=== PATIENT | female | born 1930 | race Hispanic/Latino ===

== ENCOUNTER 2016-08-22 17:03 | Emergency (ER) | payer MEDICARE, MEDICAID ==
--- NOTE | 2016-08-22 18:32 | XRay Report ---
FINAL REPORT PROCEDURE: XR HIP 2-3V RT TECHNIQUE: RIGHT hip radiographs, 2 views each, including AP view of the pelvis. HISTORY: fall off bed. Right hip pain COMPARISON: No prior studies are available for comparison. FINDINGS: There has been right hip arthroplasty. No fracture of the lower brule bone is seen. No evidence of dislocation. There is underlying osteopenia. IMPRESSION: No acute fracture is visible. If there are persistent or worsening symptoms, recommend follow-up to exclude occult fracture
[2016-08-22] MEDS ORDERED: NORCO 5/325 PO ONE (19:07)
--- NOTE | 2016-08-22 19:28 | Emergency Department Report ---
ED Fall HPI - General Chief Complaint: Fall Stated Complaint: RT HIP PAIN Time Seen by Provider: 08/22/16 17:47 Source: patient, EMS Mode of arrival: Stretcher Limitations: Language Barrier - History of Present Illness Initial Comments: 85-year-old female with a past medical history of COPD with home oxygen use and right hip replacement presents hospital complaints of fall out of bed and right hip pain. Patient fell out of bed as night causing her to wake up she was able to ambulate after fall with her walker. She complains of continued right hip pain rated 5/10 in intensity, worse with palpation and movement. Patient walks with a walker at baseline. She denies head injury. Patient also has several skin avulsion/abrasion to her right arm. - Related Data Home Medications Medication Instructions Recorded Confirmed Last Taken ALBUTEROL Inhaler [Proair] 2 puff IH QID PRN 08/22/16 08/22/16 Unknown Budesoni/Formotero 160-4.5(Nf) 2 puff IH BID 08/22/16 08/22/16 Unknown [Symbicort 160-4.5 (Nf)] Ranitidine HCl [Heartburn Relief] 150 mg PO QDAY 08/22/16 08/22/16 Unknown Tiotropium [Spiriva] 18 mcg IH QDAY 08/22/16 08/22/16 Unknown traMADol [Ultram] 50 mg PO Q4HR PRN 08/22/16 08/22/16 Unknown Previous Rx's Medication Instructions Recorded Last Taken Type HYDROcodone/APAP 5-325 [Hooper 1 each PO Q6HR PRN #20 tablet 08/22/16 Unknown Rx 5/325] Ibuprofen [Motrin] 400 mg PO Q8H PRN #30 tablet 08/22/16 Unknown Rx amLODIPine [Norvasc] 5 mg PO DAILY #30 tab 08/22/16 Unknown Rx Allergies Allergy/AdvReac Type Severity Reaction Status Date / Time No Known Allergies Allergy Unverified 06/29/13 16:03 ED Review of Systems ROS: Stated complaint: RT HIP PAIN Other details as noted in HPI Comment: All other systems reviewed and negative Other: Constitutional: No fevers chills Eyes: No eye pain visual changes ENT: No ear pain or throat pain Neck: Denies pain Respiratory: Denies cough wheezing shortness of breath Cardiovascular: Denies chest pain, palpitations, syncope GI: Denies abdominal pain, nausea, vomiting, diarrhea : Denies dysuria, urinary frequency, or urgency Musculoskeletal: As per HPI Skin: Denies rash, lesions, erythema Neurologic: Denies headache, numbness, weakness Psychiatric: Denies suicidal ideation, hallucinations ED Past Medical Hx - Past Medical History Previous Medical History?: Yes Hx COPD: Yes (Home O2 2lpm) - Surgical History Past Surgical History?: Yes Additional Surgical History: right hip replacement - Medications Home Medications: Home Medications Medication Instructions Recorded Confirmed Last Taken Type ALBUTEROL Inhaler [Proair] 2 puff IH QID PRN 08/22/16 08/22/16 Unknown History Budesoni/Formotero 160-4.5(Nf) 2 puff IH BID 08/22/16 08/22/16 Unknown History [Symbicort 160-4.5 (Nf)] HYDROcodone/APAP 5-325 [Hooper 1 each PO Q6HR PRN #20 tablet 08/22/16 Unknown Rx 5/325] Ibuprofen [Motrin] 400 mg PO Q8H PRN #30 tablet 08/22/16 Unknown Rx Ranitidine HCl [Heartburn Relief] 150 mg PO QDAY 08/22/16 08/22/16 Unknown History Tiotropium [Spiriva] 18 mcg IH QDAY 08/22/16 08/22/16 Unknown History amLODIPine [Norvasc] 5 mg PO DAILY #30 tab 08/22/16 Unknown Rx traMADol [Ultram] 50 mg PO Q4HR PRN 08/22/16 08/22/16 Unknown History ED Physical Exam - General Limitations: No Limitations - Other Other exam information: General: No limitations, patient is alert in no acute distress Head exam: Atraumatic, normocephalic Eyes exam: Normal appearance ENT: Moist mucous membrane, normal oropharynx Neck exam: Normal inspection, full range of motion, no meningismus nontender Respiratory exam: Clear to auscultation bilateral, no wheezes, rales, crackles Cardiovascular: Normal rate and rhythm, normal heart sounds Abdomen: Soft, nondistended, and nontender, with normal bowel sounds, no rebound, or guarding Extremity: No deformity. 2+ DP pulses. Patient has tenderness at her right hip joint to palpation. Pain with flexion, extension limited into external rotation secondary to pain. Back: Normal Inspection, full range of motion, no tenderness Neurologic: Alert, oriented x3, cranial nerves intact, no motor or sensory deficit Psychiatric: normal affect, normal mood Skin: There or various abrasions and skin avulsions to right arm ED Course Vital Signs 08/22/16 08/22/16 08/22/16 17:15 17:43 21:02 Pulse Rate 115 H 88 Respiratory 20 18 Rate Blood Pressure 160/80 210/100 Blood Pressure [Left] O2 Sat by Pulse 96 97 Oximetry 08/22/16 21:47 Pulse Rate Respiratory 17 Rate Blood Pressure Blood Pressure 165/94 [Left] O2 Sat by Pulse 97 Oximetry - Reevaluation(s) Reevaluation #1: 08/22/16 22:11 bp improved better after meds ED Medical Decision Making - Radiology Data Radiology results: report reviewed (hip x-ray: No acute fracture. Right hip arthroplast. underlying osteopenia) - Medical Decision Making Patient had elevated blood pressure to urinate improved with clonidine. Her son states that she has had blood pressure elevation in the past is not currently on medication. We'll start Norvasc 5 mg encourage PMD follow-up. No fracture seen at this time. Patient able to ambulate after Hooper. Has tramadol at home for pain. Will give Hooper for additional pain relief. - Differential Diagnosis fxt, contusion, sprain Critical Care Time: No Critical care attestation.: If time is entered above; I have spent that time in minutes in the direct care of this critically ill patient, excluding procedure time. ED Disposition Clinical Impression: Contusion of right hip Qualifiers: Encounter type: initial encounter Qualified Code(s): S70.01XA - Contusion of right hip, initial encounter Fall Qualifiers: Encounter type: initial encounter Qualified Code(s): W19.XXXA - Unspecified fall, initial encounter HTN (hypertension) Qualifiers: Hypertension type: essential hypertension Qualified Code(s): I10 - Essential ( primary) hypertension COPD (chronic obstructive pulmonary disease) Qualifiers: COPD type: chronic bronchitis Disposition: DISCHARGED TO HOME OR SELFCARE Is pt being admited?: No Condition: Stable Instructions: Hypertension (ED), Chronic Obstructive Pulmonary Disease (ED), Hip Sprain (ED) Additional Instructions: Take medication as prescribed. Return if symptoms worsen. Prescriptions: amLODIPine [Norvasc] 5 mg PO DAILY #30 tab HYDROcodone/APAP 5-325 [Hooper 5/325] 1 each PO Q6HR PRN #20 tablet PRN Reason: Pain Ibuprofen [Motrin] 400 mg PO Q8H PRN #30 tablet PRN Reason: Pain Referrals: PRIMARY CARE, [Primary Care Provider] - 3-5 Days Time of Disposition: 22:14
[2016-08-22] MEDS ORDERED: CATAPRES PO ONE (20:57)
[2016-08-22 21:47] VITALS: BP 165/94
== END 2016-08-22 23:25 | disposition home or self-care (01) ==
LOC: ED 17:03
DX: S70.01XA Contusion of right hip, initial encounter (principal); I10 Essential (primary) hypertension; J44.9 Chronic obstructive pulmonary disease, unspecified; W06.XXXA Fall from bed, initial encounter; Y93.89 Activity, other specified; Y99.8 Other external cause status; Y92.89 Other specified places as the place of occurrence of the external cause
CPT/HCPCS: 99284